=== PATIENT | female | born 1970 | race Caucasian/White ===

== ENCOUNTER → 2016-09-10 | Outpatient (CLI) | payer BC ==
--- NOTE | 2016-09-16 15:46 | MAM ---
EXAM DESCRIPTION: Diagnostic Mammo,Bilateral CLINICAL HISTORY: 46 years, Female, asymmetry left breast COMPARISON: Screening mammogram January 31, 2016. Diagnostic mammogram and ultrasound February 22, 2016 FINDINGS: CAD used. Standard views of the left breast. Additionally straight lateral view. Spot compression views of the previously noted asymmetry in left breast obtained. Previously noted asymmetry upper left breast is stable. Other findings also stable IMPRESSION: Probably benign mammogram. Asymmetry is stable compared to January 2016. Recommend one additional follow-up evaluation in six months corresponding time of annual screening Category three: probably benign six-month follow-up recommended Electronically signed by: Vinay Kilgore MD 09/16/2016 3:13 PM CDT
== END ==
LOC: MAMMO 13:53
PROVIDERS: ATTEND Family Medicine
DX: R92.8 Other abnormal and inconclusive findings on diagnostic imaging of breast (principal)